=== PATIENT | female | born 1960 | race Caucasian/White ===

== ENCOUNTER 2020-11-01 06:40 | Day surgery (SDC) | payer OTHER ==
[~2020-11-01 06:40] MED LIST: GLUCOVANCE 2.5/1 TA1 PO; HUMULIN N100 UNIT/2; LANTUS100 U/ML; TRAM1TAB98 PO; VASOTEC2.5 MG
== END 2020-11-01 12:35 | disposition home or self-care (01) ==
LOC: CIR.AMB 06:40
PROVIDERS: ATTEND Surgery Surgery of the Hand
DX: M67.841 Other specified disorders of synovium, right hand (principal); Z20.822 Contact with and (suspected) exposure to COVID-19